=== PATIENT | female | born 1980 | race Caucasian/White ===

== ENCOUNTER 2024-09-03 13:45 | Emergency (ER) | payer BC ==
[2024-09-03] MEDS: Sodium Chloride 0.9% 1,000 ML IV SCH ×3 (15:22→23:53)
[2024-09-03] MEDS: Ondansetron 4 MG/2 ML SDV IVPUSH ONE (15:23)
[2024-09-03] MEDS: Potassium Chloride 20 MEQ Tab.ER PO ONE ×2 (16:05→20:20)
[2024-09-03] MEDS: Magnesium Sulf/Wat 2 GM/50 mL 2 GM in Premix Bag 1 BAG IV ONE (16:05)
[2024-09-03] MEDS: Ketorolac 30 MG/ML SDV IVPUSH ONE (16:11)
[2024-09-03] MEDS: Sodium Chloride 0.9% 1,000 ML IV ONE (17:20)
[2024-09-03] MEDS: Prochlorperazine 10 MG/2 ML SDV IVPUSH ONE (18:06)
[2024-09-03] MEDS: Sodium Chloride 0.9% 80 ML IV SCH (18:35)
[2024-09-03] MEDS: Iopamidol 612 MG/ML 100 ML Bottle IV SCH (18:35)
[2024-09-03] MEDS: Loperamide 2 MG Cap PO ONE (20:20)
[2024-09-03 20:38] LABS: MAGNESIUM 2.2 mg/dL (1.8-2.4)
[2024-09-03 20:39] LABS: POTASSIUM,K 2.9 mmol/L (3.6-5.2)
[2024-09-03] MEDS ORDERED: Naloxone 0.4 MG/ML SDV IVPUSH PRN (23:01)
[2024-09-03] MEDS ORDERED: Sodium Chloride 0.9% 10 ML Syringe FLUSH PRN (23:01)
[2024-09-03] MEDS ORDERED: Ondansetron 4 MG/2 ML SDV IV PRN (23:01)
[2024-09-03] MEDS ORDERED: Acetaminophen 325 MG Tab PO PRN (23:01)
[2024-09-03] MEDS: Ibuprofen 600 MG Tab PO PRN (23:39)
[2024-09-04 05:53] LABS: BASOPHILS PERCENT AUTO 0.4 % (0.1-1.3); EOSINOPHILS ABSOLUTE AUTO 0.13 K/uL (0.00-0.40); EOSINOPHILS PERCENT AUTO 2.8 % (0.0-5.4); HEMATOCRIT 32.4 % (34.3-46.0); HEMOGLOBIN 10.8 g/dL (11.2-15.5); IMMATURE GRAN PERCENT AUTO 0.4 % (0.0-0.7); LYMPHOCYTES ABSOLUTE AUTO 1.22 K/uL (0.8-3.3); LYMPHOCYTES PERCENT AUTO 25.9 % (11.4-47.7); MEAN CORPUSCULAR HEMOGLOBIN 28.3 pg (31.6-35.5); MEAN CORPUSCULAR HGB CONC 33.3 g/dL (31.6-35.5); MEAN CORPUSCULAR VOLUME 84.8 fL (81.4-99.0); MONOCYTES ABSOLUTE AUTO 0.51 K/uL (0.20-0.90); MONOCYTES PERCENT AUTO 10.8 % (3.3-12.6); NEUTROPHILS ABSOLUTE AUTO 2.81 K/uL (1.0-7.6); NEUTROPHILS PERCENT AUTO 59.7 % (40.0-78.1); PLATELET COUNT,PLT 144 K/uL (130-375); RED BLOOD CELL COUNT 3.82 M/uL (3.77-5.24); WHITE BLOOD CELL COUNT,WBC 4.7 K/uL (3.2-11.0)
[2024-09-04 05:55] LABS: BASOPHILS ABSOLUTE AUTO 0.02 K/uL (0.00-0.10); IMMATURE GRAN ABSOLUTE AUTO 0.02 K/uL (0.00-0.23)
[2024-09-04 06:17] LABS: C-REACTIVE PROTEIN 2.54 mg/dL (<0.50); EST CRCL DRUG DOSING (CG) 69.81 mL/min; MAGNESIUM 2.1 mg/dL (1.8-2.4); POTASSIUM,K 3.7 mmol/L (3.6-5.2)
[2024-09-04 06:26] LABS: ANION GAP 13.7 mmol/L (5.0-14.0)
[2024-09-04] MEDS: Pantoprazole 40 MG Tab.CR PO SCH (07:48)
[2024-09-04] MEDS: Levothyroxine 25 MCG Tab PO SCH (07:48)
[2024-09-04] MEDS: Potassium Chloride 20 MEQ Tab.ER PO ONE (07:48)
[2024-09-04] MEDS: Losartan 50 MG Tab PO SCH (09:39)
[2024-09-04] MEDS: Topiramate 25 MG Tab PO SCH (09:39)
[2024-09-04] MEDS: Hydrochlorothiazide 25 MG Tab PO SCH (09:39)
[2024-09-04] MEDS: HYDROmorphone 0.5 MG/0.5 ML Syringe IVPUSH PRN (12:56)
[2024-09-04] MEDS: Loperamide 2 MG Cap PO PRN (14:50)
[2024-09-04] MEDS: Ondansetron 4 MG Tab.DIS PO PRN (19:14)
[2024-09-04] MEDS: Lactobacillus Rhamnosus GG (Probiotic) Cap PO SCH (20:36)
[2024-09-04] MEDS: Sodium Chloride 0.9% 1,000 ML IV SCH (21:08)
[2024-09-05 05:54] LABS: HEMATOCRIT 31.5 % (34.3-46.0); HEMOGLOBIN 10.4 g/dL (11.2-15.5); MEAN CORPUSCULAR VOLUME 84.9 fL (81.4-99.0); RED BLOOD CELL COUNT 3.71 M/uL (3.77-5.24); WHITE BLOOD CELL COUNT,WBC 4.2 K/uL (3.2-11.0)
[2024-09-05 06:10] LABS: C-REACTIVE PROTEIN 1.19 mg/dL (<0.50); CALCIUM 8.2 mg/dL (8.5-10.1); EST CRCL DRUG DOSING (CG) 69.81 mL/min; POTASSIUM,K 3.8 mmol/L (3.6-5.2)
[2024-09-05 06:11] LABS: ANION GAP 12.8 mmol/L (5.0-14.0)
== END 2024-09-05 12:27 | disposition home or self-care (01) ==
LOC: JP.ED 13:45 → JP.MS 21:52
PROVIDERS: ADMIT Nurse Practitioner; ATTEND Internal Medicine
DX: K57.92 Diverticulitis of intestine, part unspecified, without perforation or abscess without bleeding (principal); K52.9 Noninfective gastroenteritis and colitis, unspecified; E87.6 Hypokalemia; E86.0 Dehydration; Z88.8 Allergy status to other drugs, medicaments and biological substances; Z79.890 Hormone replacement therapy; Z79.899 Other long term (current) drug therapy; Z90.49 Acquired absence of other specified parts of digestive tract
CPT/HCPCS: 36415; 74177; 80048; 83735; 84132; 85025; 85027; 86140; 87046; 87427; 87493; 89055; 96361; 96365; 96366; 96375; 96376; 99285; A9270; G0378; J0780; J1885; J2405; J3475; J7030; Q0162; Q9967; 99222; 99232; 99238